=== PATIENT | female | born 1955 | race Caucasian/White ===

== ENCOUNTER → 2021-02-11 08:37 | Outpatient (CLI) | payer BC, SELFPAY ==
[2021-02-11 19:54] LABS: SARS-CoV-2 RNA PCR Positive
== END ==
PROVIDERS: PCP Family Medicine; Visit Provider Physician Assistant Medical
DX: U07.1 COVID-19 (principal)
CPT/HCPCS: C9803; U0003; U0005

== ENCOUNTER 2021-02-13 13:19 | Outpatient (RCR) | payer BC, SELFPAY ==
[2021-02-13] MEDS: FAMOTIDINE 20 MG TABLET PO (13:43)
[2021-02-13] MEDS: ACETAMINOPHEN 325 MG TABLET 650 MG PO (13:43)
[2021-02-13] MEDS: diphenhydrAMINE HCl CAP 25 MG CAPSULE PO (13:43)
[2021-02-13 13:58] VITALS: BP 133/74; PULSE 67; RESP 20; TEMP 36.4; O2SAT 97
[2021-02-13 15:20] VITALS: BP 131/71; PULSE 61; RESP 20; TEMP 36.6; O2SAT 100
--- NOTE | 2021-02-14 09:05 | PC.NURSE ---
Called to follow-up with patient regarding antibody infusion from 02/13/2021. Patient states she is feeling well and denies any side effects at this time.
== END 2021-02-13 16:00 | disposition home or self-care (01) ==
LOC: AMCINF 13:19
PROVIDERS: PCP Physician Assistant Medical; Referring Provider Physician Assistant Medical; Visit Provider Internal Medicine Hematology & Oncology
DX: Z23 Encounter for immunization (principal); U07.1 COVID-19
CPT/HCPCS: A9270; J7050; M0243